=== PATIENT | male | born 2000 | race Caucasian/White ===

== ENCOUNTER 2021-02-02 10:53 | Emergency (ER) | payer OTHER ==
[2021-02-02] MEDS ORDERED: MOBIC15 MG PO (13:11)
== END 2021-02-02 14:11 | disposition home or self-care (01) ==
LOC: FER 10:53
DX: M25.512 Pain in left shoulder (principal); R51.9 Headache, unspecified; V49.40XA Driver injured in collision with unspecified motor vehicles in traffic accident, initial encounter; Y92.410 Unspecified street and highway as the place of occurrence of the external cause
CPT/HCPCS: 70450; 72125; 73030